=== PATIENT | female | born 1980 | race African-American/Black ===

== ENCOUNTER 2021-11-12 15:03 | Emergency (ER) | payer OTHER ==
[~2021-11-12] VITALS: Ht 167.6 cm; Wt 81.0 kg
[2021-11-12 15:09] VITALS: BP 179/113
[2021-11-12] MEDS ORDERED: SODIUM CHLORIDE 0.9% 1,000 ML IV ONE (16:15)
[2021-11-12] MEDS ORDERED: INSULIN REGULAR (HUMULIN R) 300UNITS/3ML VIAL SUBCUT ONE (16:15)
[2021-11-12] MEDS ORDERED: CLONIDINE 0.2MG TABLET PO ONE (16:15)
== END 2021-11-12 17:42 | disposition left against medical advice (07) ==
LOC: ER 15:03
DX: E11.65 Type 2 diabetes mellitus with hyperglycemia (principal); R03.0 Elevated blood-pressure reading, without diagnosis of hypertension; Z79.84 Long term (current) use of oral hypoglycemic drugs; Z91.040 Latex allergy status
CPT/HCPCS: 81025; 82962; 99282; J1815; J7030